=== PATIENT | female | born 1960 | race Caucasian/White ===

== ENCOUNTER 2019-07-23 17:35 | Emergency (ER) | payer OTHER ==
[~2019-07-23] VITALS: Ht 165 cm; Wt 81.6 kg
[2019-07-23 18:12] LABS: BASOPHILS % (AUTO) 0 % (0-10); EOSINOPHILS % (AUTO) 1 % (0-10); HEMATOCRIT 38 % (35-52); HEMOGLOBIN 12.9 G/DL (11.5-16.0); LYMPHOCYTES # (AUTO) 1.2 X 10^3 (1.0-4.0); LYMPHOCYTES % (AUTO) 32 % (12-44); MEAN CORPUSCULAR HEMOGLOBIN 29 PG (25-34); MEAN CORPUSCULAR HGB CONC 34 G/DL (32-36); MEAN CORPUSCULAR VOLUME 87 FL (80-99); MEAN PLATELET VOLUME 9.3 FL (7.4-10.4); MONOCYTES # (AUTO) 0.3 X 10^3 (0.0-1.0); MONOCYTES % (AUTO) 8 % (0-12); NEUTROPHILS # (AUTO) 2.2 X 10^3 (1.8-7.8); NEUTROPHILS % (AUTO) 59 % (42-75); PLATELET COUNT 230 10^3/uL (130-400); RED CELL DISTRIBUTION WIDTH 13.4 % (10.0-14.5); WHITE BLOOD COUNT 3.7 10^3/uL (4.3-11.0)
--- NOTE | 2019-07-23 18:23 | Diagnostic Imaging Report ---
HISTORY: Shortness of breath. Positive for COVID. TECHNIQUE: Single frontal view of the chest. COMPARISON: None. FINDINGS: Lung volumes are normal. There are minimal opacities in the lung bases, with faint hazy opacities in the right lung. No pleural effusion or pneumothorax is seen. The cardiac silhouette is normal in size. There is a 5 cm chondroid matrix-type lesion in the proximal left humerus which likely represents an enchondroma. IMPRESSION: 1. Minimal bibasilar opacities and faint hazy opacities in the right lung, may be due to infection given the patient's history. Dictated by: Dictated on workstation # [id number]
[2019-07-23 18:27] LABS: CHLORIDE 108 MMOL/L (98-107); INR 0.9 (0.8-1.4); POTASSIUM 3.8 MMOL/L (3.6-5.0); PROTHROMBIN TIME PATIENT 12.8 SEC (12.2-14.7); SODIUM 140 MMOL/L (135-145)
[2019-07-23 18:28] LABS: CALCIUM 8.4 MG/DL (8.5-10.1)
[2019-07-23 18:30] LABS: GLUCOSE 99 MG/DL (70-105); TOTAL PROTEIN 6.9 GM/DL (6.4-8.2)
[2019-07-23 18:31] LABS: BILIRUBIN,TOTAL 0.2 MG/DL (0.1-1.0); CARBON DIOXIDE 22 MMOL/L (21-32)
[2019-07-23 18:33] LABS: ALKALINE PHOSPHATASE 81 U/L (40-136); CREATININE SERUM 0.69 MG/DL (0.60-1.30); GFR ESTIMATED > 60
[2019-07-23 18:34] LABS: BUN/CREATININE RATIO 13
[2019-07-23 18:36] LABS: ALANINE AMINOTRANSFERASE 22 U/L (0-55)
[2019-07-23 19:14] VITALS: BP 116/76
--- NOTE | 2019-07-23 19:16 | ED General ---
General Chief Complaint: Respiratory Problems Stated Complaint: POSITIVE COVID Nursing Triage Note: Pt reports positive diagnosis of COVID-19. Pt concerned about decreased O2 sat and increased SOB. Pt reports symptoms have worsened today. Pt reports temperature of 100 at home. Tylenol taken at 1320. Nursing Sepsis Screen: No Definite Risk Source of Information: Patient Exam Limitations: No Limitations History of Present Illness Date Seen by Provider: Jul 23, 2019 Time Seen by Provider: 18:35 Initial Comments Here with report of shortness of air and O2 saturations that dropped to below 90s while at home. Does have history of asthma. Patient is COVID positive from known previous swab and is about 7-10 days into the disease course. She has been using her inhalers every 3-4 hours. No significant distress currently. Denies nausea, vomiting or diarrhea. Timing/Duration: 1 Week, Changing Over Time, Getting Worse Severity: Mild, Moderate Associated Systoms: No Chest Pain; Cough, Fever/Chills; No Nausea/Vomiting; Shortness of Air; No Weakness Allergies and Home Medications Allergies Coded Allergies: codeine (Verified Adverse Reaction, Unknown, Vomiting, 07/23/19) Patient Home Medication List Home Medication List Reviewed: Yes Review of Systems Review of Systems Constitutional: see HPI; No chills; fever EENTM: nose congestion; No throat pain Respiratory: cough, short of breath, wheezing Cardiovascular: No chest pain, No edema Gastrointestinal: No abdominal pain, No nausea, No vomiting Genitourinary: No dysuria, No pain Musculoskeletal: no symptoms reported Skin: no symptoms reported All Other Systems Reviewed Negative Unless Noted: Yes Past Apwmaym-Qdgnri-Dowsdy Hx Past Med/Social Hx: Reviewed Nursing Past Med/Soc Hx Patient Social History Alcohol Use: Denies Use Recreational Drug Use: No Smoking Status: Former Smoker Former Smoker, Quit: Feb 06, 1984 2nd Hand Smoke Exposure: No Recent Foreign Travel: No Contact w/Someone Who Travel: No Recent Infectious Disease Expo: Yes (COVID + exposure) Recent Hopitalizations: No Immunizations Up To Date Date of Influenza Vaccine: Jan 05, 2019 Seasonal Allergies Seasonal Allergies: No Past Medical History Surgeries: Yes (hernia repair) Abdominal, Gallbladder Respiratory: Yes Asthma Cardiac: No Neurological: No Genitourinary: No Gastrointestinal: No Musculoskeletal: No Endocrine: No HEENT: No Cancer: No Psychosocial: No Blood Disorders: No Family Medical History Reviewed Nursing Family Hx Physical Exam-Suspected Sepsis Physical Exam Vital Signs Vital Signs - First Documented 07/23/19 17:35 Temp 37.2 Pulse 79 Resp 18 B/P (MAP) 110/82 (91) Pulse Ox 94 O2 Delivery Room Air Capillary Refill : Less Than 3 Seconds Blood Pressure Mean: 91 Height, Weight, BMI Height: '" Weight: lbs. oz. kg; 29.00 BMI Method: General Appearance: No Apparent Distress, WD/WN HEENT: PERRL/EOMI, Pharynx Normal Neck: Non Tender, Supple Respiratory: Lungs Clear, Normal Breath Sounds Cardiovascular: Regular Rate, Rhythm, No Murmur Gastrointestinal: Non Tender, Soft Back: Normal Inspection, No CVA Tenderness, No Vertebral Tenderness Extremity: Normal Range of Motion, Non Tender Neurologic/Psychiatric: Alert, Oriented x3 Skin: normal color, warm/dry Focused Exam Lactate Level 07/23/19 18:00: Lactic Acid Level 0.99 Lactic Acid Level Laboratory Tests Test 07/23/19 18:00 Lactic Acid Level 0.99 MMOL/L (0.50-2.00) Progress/Results/Core Measures Suspected Sepsis Recent Fever Within 48 Hours: Yes Infection Criteria Present: Suspected New Infection New/Unexplained Altered Menta: No Sepsis Screen: No Definite Risk SIRS Temperature: Pulse: 79 Respiratory Rate: 18 Laboratory Tests 07/23/19 18:00: White Blood Count 3.7L Blood Pressure 110 /82 Mean: 91 07/23/19 18:00: Lactic Acid Level 0.99 Laboratory Tests 07/23/19 18:00: Creatinine 0.69, INR Comment 0.9, Platelet Count 230, Total Bilirubin 0.2 Results/Orders Lab Results Laboratory Tests Test 07/23/19 18:00 07/23/19 19:43 Range/Units White Blood Count 3.7 L 4.3-11.0 10^3/uL Red Blood Count 4.40 4.35-5.85 10^6/uL Hemoglobin 12.9 11.5-16.0 G/DL Hematocrit 38 35-52 % Mean Corpuscular Volume 87 80-99 FL Mean Corpuscular Hemoglobin 29 25-34 PG Mean Corpuscular Hemoglobin Concent 34 32-36 G/DL Red Cell Distribution Width 13.4 10.0-14.5 % Platelet Count 230 130-400 10^3/uL Mean Platelet Volume 9.3 7.4-10.4 FL Neutrophils (%) (Auto) 59 42-75 % Lymphocytes (%) (Auto) 32 12-44 % Monocytes (%) (Auto) 8 0-12 % Eosinophils (%) (Auto) 1 0-10 % Basophils (%) (Auto) 0 0-10 % Neutrophils # (Auto) 2.2 1.8-7.8 X 10^3 Lymphocytes # (Auto) 1.2 1.0-4.0 X 10^3 Monocytes # (Auto) 0.3 0.0-1.0 X 10^3 Eosinophils # (Auto) 0.0 0.0-0.3 10^3/uL Basophils # (Auto) 0.0 0.0-0.1 10^3/uL Prothrombin Time 12.8 12.2-14.7 SEC INR Comment 0.9 0.8-1.4 Activated Partial Thromboplast Time 33 24-35 SEC Fibrinogen 503 H 221-496 MG/DL D-Dimer 0.81 H 0.00-0.49 UG/ML Sodium Level 140 135-145 MMOL/L Potassium Level 3.8 3.6-5.0 MMOL/L Chloride Level 108 H 98-107 MMOL/L Carbon Dioxide Level 22 21-32 MMOL/L Anion Gap 10 5-14 MMOL/L Blood Urea Nitrogen 9 7-18 MG/DL Creatinine 0.69 0.60-1.30 MG/DL Estimat Glomerular Filtration Rate > 60 BUN/Creatinine Ratio 13 Glucose Level 99 70-105 MG/DL Lactic Acid Level 0.99 0.50-2.00 MMOL/L Calcium Level 8.4 L 8.5-10.1 MG/DL Corrected Calcium 8.4 L 8.5-10.1 MG/DL Total Bilirubin 0.2 0.1-1.0 MG/DL Aspartate Amino Transf (AST/SGOT) 18 5-34 U/L Alanine Aminotransferase (ALT/SGPT) 22 0-55 U/L Alkaline Phosphatase 81 40-136 U/L Lactate Dehydrogenase 176 125-220 U/L Troponin I 0.046 H < 0.028 <0.028 NG/ML C-Reactive Protein High Sensitivity 1.04 H 0.00-0.50 MG/DL Total Protein 6.9 6.4-8.2 GM/DL Albumin 4.0 3.2-4.5 GM/DL My Orders Orders - CHEPE HAMILTON MD Fibrin Degradation Products (07/23/19 19:10) Troponin I (07/23/19 19:10) Lactated Ringers (Lr 1000 Ml Iv Solution (07/23/19 20:15) Medications Given in ED Current Medications Medications Dose Ordered Sig/Malou Route Start Time Stop Time Status Last Admin Dose Admin Lactated Ringer's 1,000 ml @ 0 mls/hr Q0M ONCE IV 07/23/19 20:15 07/23/19 20:16 DC 07/23/19 19:15 0 MLS/HR Vital Signs/I&O 07/23/19 07/23/19 07/23/19 07/23/19 17:35 19:14 19:30 19:45 Temp 37.2 Pulse 79 73 70 72 Resp 18 16 18 18 B/P (MAP) 110/82 (91) 116/76 (89) 103/73 (83) 111/68 (82) Pulse Ox 94 99 99 95 O2 Delivery Room Air Room Air Room Air Room Air 07/23/19 07/23/19 20:00 20:15 Pulse 68 71 Resp 16 18 B/P (MAP) 108/69 (82) 109/67 (81) Pulse Ox 99 100 O2 Delivery Room Air Room Air Capillary Refill : Less Than 3 Seconds Blood Pressure Mean: 91 Progress Note : Progress Note Seen and evaluated. IV, labs, EKG and chest x-ray ordered. 1909: Troponin noted to be slightly bumped. We will repeat at two-hour cristopher. No history of cardiac workup or disease. LR 1 L bolus. Patient's O2 saturations have been 95% plus throughout the stay while on room air. Monitor patient. 2036: Repeat troponin is negative. I did discuss the case with Dr. Polo. She does have known COVID-19 she does have laboratory findings consistent with that. I do not believe this is an active cardiac event and is likely more related to COVID-[address] Polo will follow her in the office as COVID-19 infection clears and get her set up for stress test to further evaluation as indicated. I did discuss at length with the patient regarding home precautions and return precautions. Patient verbalize understanding. Discharged home with return precautions. Patient verbalize understanding instructions and agreement with plan. ECG Initial ECG Impression Date: Jul 23, 2019 Initial ECG Impression Time: 17:47 Initial ECG Rate: 78 Initial ECG Rhythm: Normal Sinus Initial ECG Comparisson: No Previous ECG Available Comment Sinus rhythm with PVC. Leftward axis. No evidence of ST elevation AK. No previous available for comparison. Interpreted by me. Diagnostic Imaging Diagonstic Imaging: Xray Plain Films/CT/US/NM/MRI: chest Comments [facility] [place], [place] NAME: [facility] REC#: [id number] PT STATUS: REG ER : 1960 PHYSICIAN: DEE MORRIS DO ADMIT DATE: 07/23/19/ER Draft Date of Exam:07/23/19 CHEST 1 VIEW, AP/PA ONLY HISTORY: Shortness of breath. Positive for COVID. TECHNIQUE: Single frontal view of the chest. COMPARISON: None. FINDINGS: Lung volumes are normal. There are minimal opacities in the lung bases, with faint hazy opacities in the right lung. No pleural effusion or pneumothorax is seen. The cardiac silhouette is normal in size. There is a 5 cm chondroid matrix-type lesion in the proximal left humerus which likely represents an enchondroma. IMPRESSION: 1. Minimal bibasilar opacities and faint hazy opacities in the right lung, may be due to infection given the patient's history. Dictated on workstation # [id number] Dict: 07/23/19 1806 Trans: 07/23/19 1822 [id number] Interpreted by: SANDRO PACK MD Electronically signed by: Departure Impression Primary Impression: Coronavirus infection Disposition: HOME, SELF-CARE Condition: Stable Departure-Patient Inst. Decision time for Depature: 20:40 Referrals: TABBY POLO MD, CARLA M APRN (PCP) Primary Care Physician Patient Instructions: Coronavirus Disease 2019 (COVID-19) (DC), Asthma, Adult (DC) Add. Discharge Instructions: All discharge instructions reviewed with patient and/or family. Voiced understanding. Continue to drink plenty of fluids. Continue to use an inhaler 2 puffs every 4 hours as needed for shortness of breath. It is very important that you return for increased shortness of breath, chest pain, weakness, breathing problems or other concerns as needed. Follow-up with your Dr. as needed. Copy Copies To 1: TABBY POLO MD, TIMOTHY D MD Jul 23, 2019 19:16
[2019-07-23 19:30] VITALS: BP 103/73
[2019-07-23 19:45] VITALS: BP 111/68
[2019-07-23 20:00] VITALS: BP 108/69
[2019-07-23 20:15] VITALS: BP 109/67
[2019-07-23] MEDS ORDERED: LACTATED RINGERS 1,000 ML IV ONE (20:15)
[2019-07-23 20:53] VITALS: BP 112/68
--- OUTSIDE RECORDS SUMMARY | 2019-07-23 21:41 | XMS REPORT | Continuity of Care Document ---
Author Organization Unknown Address Unknown Phone Unavailable Allergies Active Description Code Type Severity Reaction Onset Reported/Identified Relationship to Patient Clinical Status Yes codeine [id number] Drug Allergy Unknown Vomiting 07/23/2019 Medications There is no data. Problems There is no data. Procedures There is no data. Results Test Result Range COVID-19 ([facility]) - 07/17/19 09:01 Complete blood count (CBC) with automate d white blood cell (WBC) differential - 07/23/19 18:00 Blood leukocytes automated count (number/volume) 3.7 10*3/uL 4.3-11.0 Blood erythrocytes automated count (number/volume) 4.40 10*6/uL 4.35-5.85 Venous blood hemoglobin measurement (mass/volume) 12.9 g/dL 11.5-16.0 Blood hematocrit (volume fraction) 38 % 35-52 Automated erythrocyte mean corpuscular volume 87 [ foz_us] 80-99 Automated erythrocyte mean corpuscular h emoglobin (mass per erythrocyte) 29 pg 25-34 Automated erythrocyte mean corpuscular h emoglobin concentration measurement (mass/volume) 34 g/dL 32-36 Automated erythrocyte distribution width ratio 13. 4 % 10.0- 14.5 Automated blood platelet count (count/volume) 230 10*3/uL 130-400 Automated blood platelet mean volume measurement 9.3 [foz_us] 7.4-10.4 Automated blood neutrophils/100 leukocytes 59 % 42-75 Automated blood lymphocytes/100 leukocytes 32 % 12-44 Blood monocytes/100 leukocytes 8 % 0-12 Automated blood eosinophils/100 leukocytes 1 % 0-10 Automated blood basophils/100 leukocytes 0 % 0-10 Blood neutrophils automated count (number/volume) 2.2 10*3 1.8-7.8 Blood lymphocytes automated count (number/volume) 1.2 10*3 1.0-4.0 Blood monocytes automated count (number/volume) 0. 3 10*3 0.0-1.0 Automated eosinophil count 0.0 10*3/uL 0 .0-0.3 Automated blood basophil count (count/volume) 0.0 10*3/uL 0.0-0.1 Comprehensive metabolic panel - 07/23/19 18:00 Serum or plasma sodium measurement (moles/volume) 140 mmol/L 135-145 Serum or plasma potassium measurement (moles/volume) 3.8 mmol/L 3.6-5.0 Serum or plasma chloride measurement (moles/volume) 108 mmol/L 98-107 Carbon dioxide 22 mmol/L 21-32 Serum or plasma anion gap determination (moles/volume) 10 mmol/L 5-14 Serum or plasma urea nitrogen measurement (mass/volume ) 9 mg/dL 7-18 Serum or plasma creatinine measurement (mass/volume) 0.69 mg/dL 0.60-1.30 Serum or plasma urea nitrogen/creatinine mass ratio 13 NRG Serum or plasma creatinine measurement w ith calculation of estimated glomerular filtration rate > NRG Serum or plasma glucose measurement (mass/volume) 99 mg/dL 70-105 Serum or plasma calcium measurement (mass/volume) 8.4 mg/dL 8.5-10.1 Serum or plasma total bilirubin measurement (mass/volu me) 0.2 mg/dL 0.1-1.0 Serum or plasma alkaline phosphatase edwardo surement (enzymatic activity/volume) 81 U/L 40-136 Serum or plasma aspartate aminotransfera se measurement (enzymatic activity/volume) 18 U/L 5-34 Serum or plasma alanine aminotransferase measurement (enzymatic activity/volume) 22 U/L 0-55 Serum or plasma protein measurement (mass/volume) 6.9 g/dL 6.4-8.2 Serum or plasma albumin measurement (mass/volume) 4.0 g/dL 3.2-4.5 CALCIUM CORRECTED 8.4 mg/dL 8.5-10.1 Blood lactic acid measurement (moles/vol ume) - 07/23/19 18:00 Blood lactic acid measurement (moles/volume) 0.99 mmol/L 0.50-2.00 Serum ragweed IgE antibody assay - 07/22 18:00 Serum ragweed IgE antibody assay 176 U/L 125-220 Serum or plasma troponin i.cardiac measu rement (mass/volume) - 07/23/19 18:00 Serum or plasma troponin i.cardiac measurement (mass/v olume) 0.046 ng/mL <0.028 PT panel in platelet poor plasma by coag ulation assay - 07/23/19 18:00 Prothrombin time (PT) in platelet poor plasma by coagu lation assay 12.8 s 12.2-14.7 INR in platelet poor plasma or blood by coagulation as say 0.9 0.8-1.4 Activated partial thromboplastin time (a PTT) in platelet poor plasma bycoagulation assay - 07/23/19 18:00 Activated partial thromboplastin time (a PTT) in platelet poor plasma bycoagulation assay 33 s 24-35 Fibrinogen measurement in platelet poor plasma by coagulation assay (mass/volume) - 07/23/19 18:00 Fibrinogen measurement in platelet poor plasma by coagulation assay (mass/volume) 503 mg/dL 221-496 Serum or plasma C reactive protein measu rement (mass/volume) - 07/23/19 18:00 Serum or plasma C reactive protein measurement (mass/v olume) 1.04 mg/dL 0.00-0.50 Fibrin D-dimer FEU measurement in platel et poor plasma (mass/volume) - 07/23/19 18:00 Fibrin D-dimer FEU measurement in platelet poor plasma (mass/volume) 0.81 ug/mL 0.00-0.49 Serum or plasma troponin i.cardiac measu rement (mass/volume) - 07/23/19 19:43 Serum or plasma troponin i.cardiac measurement (mass/v olume) < ng/mL <0.028 Encounters ACCT No. Visit Date/Time Discharge Status Pt. Type Provider Facility Loc./Unit Complaint [id number] 07/17/2019 15:40:00 07/17/2019 23:59: 59 [facility] Outpatient PAMELLA LAC[facility] [id number] 07/17/2019 15:40:00 Document Registration [id number] 07/23/2019 17:37:00 020 20:57:00 DIS Emergency JOY DUENAS, CHEPE Jung [facility] ER POSITIVE COVID
== END 2019-07-23 20:57 | disposition home or self-care (01) ==
LOC: ER 17:37
DX: U07.1 COVID-19 (principal); R79.89 Other specified abnormal findings of blood chemistry; Z88.5 Allergy status to narcotic agent; Z87.891 Personal history of nicotine dependence; Z87.09 Personal history of other diseases of the respiratory system
CPT/HCPCS: 36415; 71045; 80053; 82728; 83605; 83615; 84484; 85025; 85379; 85384; 85610; 85730; 86141; 93005; 93041; 96360; 96361